=== PATIENT | female | born 2000 | race Caucasian/White ===

== ENCOUNTER 2020-10-14 19:12 | Emergency (ER) | payer MEDICAID, OTHER ==
[~2020-10-14] VITALS: Ht 180.3 cm; Wt 136.4 kg
[~2020-10-14 19:12] MED LIST: IBUP-812 PO; METH-360 PO; NO HOME MEDS
[2020-10-14 22:42] VITALS: BP 125/87
== END 2020-10-14 22:43 | disposition home or self-care (01) ==
LOC: ER 19:14
DX: M79.641 Pain in right hand (principal); Z87.440 Personal history of urinary (tract) infections; Z79.899 Other long term (current) drug therapy
CPT/HCPCS: 29125; 73130; 99283

== ENCOUNTER → 2021-06-07 | Emergency (ER) | payer MEDICAID, OTHER ==
[~2021-06-07] VITALS: Ht 180.3 cm; Wt 136.4 kg
[~2021-06-07] MED LIST changes: +ALBU8HFA PO; +BENZ-38 PO
[2021-06-07 13:51] VITALS: BP 112/82
[2021-06-07 14:42] LABS: ALANINE AMINOTRANSFERASE 25 U/L (12-78); ALBUMIN 3.5 G/DL (3.4-5.0); ALBUMIN/GLOBULIN RATIO 0.8 (1.1-1.5); ALKALINE PHOSPHATASE 102 IU/L (20-180); ANION GAP 12 (8-16); ASPARTATE AMINO TRANSFERASE 21 U/L (10-37); BILIRUBIN,TOTAL 0.2 MG/DL (0.1-1.0); BLOOD UREA NITROGEN 9 MG/DL (7-18); BUN/CREATININE RATIO 12.2 (6.6-38.0); C-REACTIVE PROTEIN 4.35 MG/DL (0.0-0.5); CALCIUM 8.7 MG/DL (8.5-10.1); CHLORIDE 106 MMOL/L (99-107); CREATININE 0.74 MG/DL (0.40-0.90); GLUCOSE 119 MG/DL (70-104); LACTATE DEHYDROGENASE 218 U/L (81-234); SODIUM 143 MMOL/L (135-145); TOTAL CARBON DIOXIDE 25.5 MMOL/L (24-32); TOTAL PROTEIN 7.9 G/DL (6.4-8.2); eGFR > 90 ML/MIN
[2021-06-07 14:43] LABS: BASOPHILS % (AUTO) 0.2 % (0-1); EOSINOPHILS % (AUTO) 0.1 % (0-6); HEMATOCRIT 39.7 % (35.0-45.0); HEMOGLOBIN 13.3 g/dl (12.0-16.0); LYMPHOCYTES % (AUTO) 28.3 % (21-51); MEAN CORPUSCULAR HEMOGLOBIN 25.7 PG (27.0-31.0); MEAN CORPUSCULAR HGB CONC 33.4 g/dL (33.0-36.5); MEAN CORPUSCULAR VOLUME 77.1 FL (78-98); MEAN PLATELET VOLUME 9.1 FL (7.4-10.4); MONOCYTES # (AUTO) 0.4 X10'3 (0-0.9); MONOCYTES % (AUTO) 10.3 % (2-12); NEUTROPHILS # (AUTO) 2.2 X10'3 (1.8-7.7); NEUTROPHILS % (AUTO) 61.1 % (42-75); PLATELET COUNT 226 X10'3 (140-440); RED BLOOD COUNT 5.15 X10'6 (4.20-5.60); RED CELL DISTRIBUTION WIDTH 15.9 % (11.5-14.5); WHITE BLOOD COUNT 3.7 X10'3 (4.5-11.0)
== END | disposition home or self-care (01) ==
LOC: ER 13:24
DX: U07.1 COVID-19 (principal); J12.82 Pneumonia due to coronavirus disease 2019; R06.02 Shortness of breath; R07.89 Other chest pain; R05.9 Cough, unspecified; Z87.440 Personal history of urinary (tract) infections; Z79.899 Other long term (current) drug therapy
CPT/HCPCS: 36415; 71045; 80053; 83615; 85025; 86140; 99284

== ENCOUNTER 2024-08-06 16:58 | Emergency (ER) | payer MEDICAID ==
[~2024-08-06] VITALS: Ht 180.3 cm; Wt 163.6 kg
[~2024-08-06 16:58] MED LIST changes: -ALBU8HFA PO; -BENZ-38 PO
[2024-08-06] MEDS ORDERED: ALBU8HFA INH (18:54)
[2024-08-06] MEDS ORDERED: PRED10TA23 PO (18:54)
[2024-08-06] MEDS ORDERED: AMOX-117 PO (18:54)
[2024-08-06 19:29] VITALS: BP 132/66; PULSE 68; RESP 18; TEMP 98.5; O2SAT 97
== END 2024-08-06 19:30 | disposition home or self-care (01) ==
LOC: ER 17:00
DX: J20.9 Acute bronchitis, unspecified (principal); J22 Unspecified acute lower respiratory infection
CPT/HCPCS: 71045; 99283; A4340

== ENCOUNTER 2024-12-13 01:23 | Emergency (ER) | payer MEDICAID ==
[~2024-12-13] VITALS: Ht 180.3 cm; Wt 125.5 kg
[2024-12-13 01:41] VITALS: BP 145/65; PULSE 94; RESP 15; O2SAT 100
--- NOTE | 2024-12-13 02:16 | Physician Documentation ---
History of Present Illness ~ Chief Complaint: Rash Stated Complaint: BIG BITE Time Seen by MD: 02:09 Primary Medical Doctor: [facility] HPI 24 year old female with red itching bump to R inner arm. No systemic symptoms. Started as rivera/papule. Medication Reconciliation Allergies: Coded Allergies: No Known Allergies (Unverified , 12/13/24) Scheduled Ibuprofen (Motrin), 400 MG PO TID Methocarbamol (Robaxin-750), 1 TAB PO Q12H Miscellaneous Medications Home Med List (No Home Medications), (Reported) Past Medical History Past Medical History: UTI Past Surgical History: no surgical history Alcohol Use: None Drug Use: none Lives with: Mother, Father Lives In: Home Occupation: student Review of Systems All Other Systems at this time: Reviewed and Negative Physical Exam Vital Signs: RN Vital Signs have been reviewed: Yes, Temperature: 96.6, Source: Temporal, Heart Rate: 94, Respiratory Rate: 15, BP: 145/65, Pulse Oximetry: 100, Weight: 125.550 Physical Exam HEENT: PERRL, moist oral mucosa, EOMI Pulmonary: No respiratory distress MSK: no deformity Skin: w/d/i, no rash; rash to medial arm-1cm erythematous, excoriated patch Neuro: alert, nonfocal Psych: normal affect Progress Results/Orders Results/Orders Vital Signs 12/13/24 01:41 Temp 96.6 Pulse 94 Resp 15 B/P (MAP) 145/65 Pulse Ox 100 Medical Decision Making Findings 24 year old female with bite. Possible flea bite. Counseled, reassured, discharged. Differential Dx:Considerations: Include: Contact dermatitis, Impetigo, Pediculosis, Psoriaisis, Scabies, Tinea, Viral exanthema Additional Comment Ddx includes insect bite Departure Disposition: 01 HOME / SELF CARE / HOMELESS Impression: Primary Impression: Rash Condition: Stable Discharge Instructions: Rash, Adult Referrals: NO PRIMARY CARE PROVIDER (PCP) Education Educated: Patient Educated regarding: diagnosis, treatment, prognosis, need for follow up Signature Scribe Signature: . Attestation: ANDREWS CHINCHILLA MD Dec 13, 2024 02:16
[2024-12-13 02:22] VITALS: TEMP 96.6
== END 2024-12-13 02:24 | disposition home or self-care (01) ==
LOC: ER 01:24
DX: R21 Rash and other nonspecific skin eruption (principal); Z79.899 Other long term (current) drug therapy
CPT/HCPCS: 99281